=== PATIENT | male | born 1965 | race Caucasian/White ===

== ENCOUNTER 2022-08-02 13:07 | Emergency (ER) | payer OTHER ==
[~2022-08-02] VITALS: Ht 167.6 cm; Wt 128.4 kg
[2022-08-02] MEDS ORDERED: METFORMIN HCL500 MG PO (13:24)
[2022-08-02] MEDS ORDERED: LISINOPRIL20 MG PO (13:25)
== END 2022-08-02 14:28 | disposition home or self-care (01) ==
LOC: ED 13:07
DX: T20.26XA Burn of second degree of forehead and cheek, initial encounter (principal); T31.0 Burns involving less than 10% of body surface; X12.XXXA Contact with other hot fluids, initial encounter; Z79.84 Long term (current) use of oral hypoglycemic drugs; Z79.899 Other long term (current) drug therapy
CPT/HCPCS: 99283